=== PATIENT | female | born 1950 | race Two or more races ===

== ENCOUNTER 2019-01-05 00:24 | Emergency (ER) | payer MEDICARE, OTHER ==
[~2019-01-05] VITALS: Ht 160 cm; Wt 77.1 kg
--- NOTE | 2019-01-05 00:30 | NUR ---
PT BIBSELF C/O GENERALIZED WEAKNESS X 3 DAYS, PT STATES FELT DIZZY. PT AXO4. RESPIRATIONS EVEN AND UNLABORED. PT PUT ON THE DEBLOCKER AND PULSE OX.
[2019-01-05] MEDS ORDERED: IV NS 0.9% 1,000 ML BAG IV ONE ×2 (01:00→02:00)
--- NOTE | 2019-01-05 01:00 | NUR ---
PT AMBULATORY WITH STEADY GAIT TO RESTROOM, URINE SAMPLE OBTAINED AND SENT TO LAB.
[2019-01-05 01:03] LABS: BASOPHILS # (AUTO) 0.1 /CMM (0.0-0.2); BASOPHILS % (AUTO) 0.4 % (0.0-2.0); HEMATOCRIT 39 % (33-45); HEMOGLOBIN 13.3 g/dL (11.5-14.8); LYMPHOCYTES # (AUTO) 1.4 /CMM (0.8-4.8); LYMPHOCYTES % (AUTO) 9.4 % (20.0-44.0); MEAN CORPUSCULAR HGB CONC 34 g/dl (31.0-36.0); MEAN CORPUSCULAR VOLUME 91 fL (82-100); MONOCYTES # (AUTO) 2.2 /CMM (0.1-1.30); NEUTROPHILS # (AUTO) 11.2 /CMM (1.8-8.9); NEUTROPHILS % (AUTO) 75.2 % (43.0-81.0); PLATELET COUNT (AUTO) 230 /CMM (150-450); RED BLOOD CELL COUNT(AUTO) 4.31 MIL/uL (4.0-5.2); WHITE BLOOD COUNT (AUTO) 14.9 K/uL (4.3-11.0)
[2019-01-05 01:14] LABS: CALCIUM, SERUM 9.1 mg/dL (8.5-10.1); CARBON DIOXIDE 26 mmol/L (21-32); CHLORIDE 100 mmol/L (98-107); CREATININE 1.9 mg/dL (0.6-1.3); GLUCOSE 131 mg/dL (74-106); POTASSIUM 3.9 mmol/L (3.5-5.1); SODIUM SERUM 135 mmol/L (136-145); UREA NITROGEN, BLOOD 21 mg/dL (7-18)
[2019-01-05 01:19] LABS: APPEARANCE,URINE Cloudy (CLEAR); BILIRUBIN,URINE Negative (NEGATIVE); BLOOD, URINE Moderate Ery/uL (NEGATIVE); COLOR,URINE Yellow (YELLOW); KETONES,URINE Negative (NEGATIVE); LEUKOCYTE ESTERASE ,URINE Moderate (NEGATIVE); NITRITE, URINE Positive (NEGATIVE); PH,URINE 5.5 (5.0-8.0); PROTEIN,URINE 100 mg/dl (NEGATIVE); UGLUCOSE Negative (NEGATIVE); UROBILINOGEN,URINE 0.2 EU/dL (0.2)
[2019-01-05 01:25] LABS: ALANINE AMINOTRANSFERASE 21 U/L (12-78); ALKALINE PHOSPHATASE 89 U/L (46-116); ASPARTATE AMINOTRANSFERASE 16 U/L (15-37); BILIRUBIN,DIRECT 0.1 mg/dL (0.0-0.2); BILIRUBIN,TOTAL 0.3 mg/dL (0.2-1.0); TOTAL PROTEIN, SERUM 7.5 g/dL (6.4-8.2)
[2019-01-05] MEDS ORDERED: ALBUTEROL FS 2.5 MG/0.5 ML VIAL.NEB NEB ONE (01:30)
--- NOTE | 2019-01-05 01:45 | NUR ---
PT TAKEN TO CT VIA [facility].
[2019-01-05 02:21] LABS: BACTERIA,URINE Many /HPF (None Seen); SQUAMOUS EPITHELIAL CELL,UR Few /HPF (None Seen); WBC,URINE TOO NUMEROUS TO COUN /HPF (0-3)
[2019-01-05 02:23] LABS: MONOCYTES % (MANUAL) 12 % (0-11.0); NEUTROPHILS % (MANUAL) 81 (42-76)
[2019-01-05 02:24] LABS: LYMPHOCYTES % (MANUAL) 7 % (16-48)
--- NOTE | 2019-01-05 02:30 | NUR ---
PT RESTING IN BED, NAD NOTED. WILL CONTINUE TO MONITOR.
[2019-01-05] MEDS ORDERED: ALBUTEROL FS 2.5 MG/0.5 ML VIAL.NEB ONE (02:34)
[2019-01-05 03:45] VITALS: BP 100/70
--- NOTE | 2019-01-05 03:45 | NUR ---
Patient discharged to home in stable condition. Written and verbal after care instructions given. Patient verbalizes understanding of instruction. IV removed. Catheter intact and site benign. Pressure and 4x4 applied to site. No bleeding noted.
== END 2019-01-05 03:46 | disposition home or self-care (01) ==
LOC: ER 00:31
DX: E86.0 Dehydration (principal); N39.0 Urinary tract infection, site not specified; R06.2 Wheezing; I10 Essential (primary) hypertension; F17.200 Nicotine dependence, unspecified, uncomplicated; Z98.890 Other specified postprocedural states; Z60.2 Problems related to living alone
CPT/HCPCS: 36415; 70450; 71045; 80048; 80076; 81001; 84484; 85025; 85730; 87077; 87086; 87186; 93005; 94640; 96360; 96361; 99284; J7030 ×2; 81000-TC